=== PATIENT | male | born 1955 | race Caucasian/White ===

== ENCOUNTER 2017-03-30 11:09 | Inpatient (IN) | payer OTHER ==
[~2017-03-30] VITALS: Ht 175.3 cm; Wt 87.5 kg
[2017-03-30] VITALS (10 sets, daily range): BP systolic 120–183; BP diastolic 79–95; PULSE 52–71; RESP 16–24; TEMP 97.4–97.8; O2SAT 6–98
[~2017-03-30 11:09] MED LIST: ASPI81CH5; CLONIDINE PO
[2017-03-30] MEDS ORDERED: AMLO10TA2 PO (11:44)
[2017-03-30] MEDS ORDERED: ENAL10TA PO (11:44)
[2017-03-30] MEDS ORDERED: ATOR40TA16 PO (11:44)
[2017-03-30] MEDS ORDERED: SODIUM CHLORIDE 0.9% FLUSH 10 ML FLUSH IVF PRN (11:45)
[2017-03-30] MEDS ORDERED: ASPIRIN 325 MG TAB PO ONE (11:45)
[2017-03-30 11:59] LABS: AUTOMATED NEUTROPHIL # 5.3 TH/MM3 (1.8-7.7); BASOPHIL % 0.4 % (0.0-2.0); EOSINOPHIL # 0.2 TH/MM3 (0-0.4); EOSINOPHIL % 2.3 % (0.0-4.0); HEMATOCRIT 46.6 % (39.0-51.0); HEMO FLAGS DIFF FINAL; LYMPH % 26.2 % (9.0-44.0); LYMPHOCYTE # 2.2 TH/MM3 (1.0-4.8); MEAN CORPUSCULAR HEMOGLOBIN 30.9 PG (27.0-34.0); MEAN CORPUSCULAR HGB CONC 34.3 % (32.0-36.0); MONO % 7.8 % (0.0-8.0); NEUT % 63.3 % (16.0-70.0); PLATELET COUNT 142 TH/MM3 (150-450); RED BLOOD COUNT 5.18 MIL/MM3 (4.50-5.90); RED CELL DISTRIBUTION WIDTH 13.8 % (11.6-17.2); WHITE BLOOD COUNT 8.3 TH/MM3 (4.0-11.0)
[2017-03-30 12:07] LABS: APTT (PATIENT) 30.1 SEC (24.3-30.1); PROTHROMBIN TIME - PATIENT 10.8 SEC (9.8-11.6)
--- NOTE | 2017-03-30 12:11 | RADRPT ---
EXAM DATE/TIME: 03/30/2017 11:37 [place] COMPARISON: No previous studies available for comparison. INDICATIONS : Chest pain. MEDICAL HISTORY : None. SURGICAL HISTORY : Heart stent. ENCOUNTER: Initial ACUITY: 2 days PAIN SCORE: 4/10 LOCATION: Bilateral chest FINDINGS: A single view of the chest demonstrates the lungs to be symmetrically aerated without evidence of mas s, infiltrate or effusion. The cardiomediastinal contours are unremarkable. Osseous structures are intact. CONCLUSION: No acute disease. Carlos Manuel Beck MD on March 30, 2017 at 12:09 Board Certified Radiologist. This report was verified electronically.
--- NOTE | 2017-03-30 12:25 | PD ---
HPI Chief Complaint: Chest Pain Time Seen by Provider: 12:20 Travel History International Travel<30 days: No Contact w/Intl Traveler<30days: No Traveled to known affect area: No History of Present Illness HPI 61-year-old male that presents to the ED for evaluation of chest pain. Per patient he had chest pain on and off for the past couple days. Per patient he feels like a burning sensation as well as pressure. He does report that about 5 -10 years ago he had "a minor heart attack "per patient he does not know she had stents or anything that he was told that he had a heart event. He denies any chest pain at this time and states the chest pain actually has been gone for about an hour now. Patient was seen at a primary care facility where he was told to come here. He does have a history of high blood pressure high cholesterol. 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 He has not had a stress test in the past. Denies any shortness of breath. Denies any symptoms at this time. He was not given aspirin at the urgent care. He has no allergies to medication. Takes no blood thinners. Denies any abdominal pain. No nausea or vomiting. Per patient he had the pain was 5 out of 10. Radiate to the arms bilaterally but not always time. Per patient his been ongoing for about 2 days now. Today was the more severe and is what made him come here today. 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 PFSH Past Medical History Hx Anticoagulant Therapy: No Arthritis: No Asthma: No Autoimmune Disease: No Blood Disorders: No Anxiety: No Depression: No Heart Rhythm Problems: No Cancer: No Cardiac Catheterization: Yes (ANGIOPLASTY) Cardiovascular Problems: Yes High Cholesterol: No Chemotherapy: No Chest Pain: Yes Congestive Heart Failure: No COPD: No Cerebrovascular Accident: No Coronary Artery Disease: Yes Diabetes: No Diminished Hearing: No Endocrine: No GERD: No Glaucoma: No Genitourinary: No Headaches: No Hepatitis: No Hiatal Hernia: No Hypertension: Yes Kidney Stones: No Musculoskeletal: No Neurologic: No Psychiatric: No Respiratory: No Myocardial Infarction: No Radiation Therapy: No Renal Failure: No Seizures: No Sickle Cell Disease: No Sleep Apnea: No Thyroid Disease: No Ulcer: No Influenza Vaccination: No Past Surgical History Abdominal Surgery: Yes (APPENDECTOMY) AICD: No Body Medical Devices: NONE Cardiac Surgery: No Ear Surgery: No Endocrine Surgery: No Eye Surgery: No Genitourinary Surgery: No Gynecologic Surgery: No Oral Surgery: No Pacemaker: No Thoracic Surgery: No Other Surgery: Yes Social History Alcohol Use: Yes ("OCCASIONALLY" DRANK 3 VODKAS YESTERDAY.) Tobacco Use: Yes (1/2 TO 3/4 PPD) Substance Use: No Allergies-Medications (Allergen,Severity, Reaction): Coded Allergies: No Known Allergies (Verified , 03/30/17) Reported Meds & Prescriptions Reported Meds & Active Scripts Active Reported Enalapril (Enalapril Maleate) 10 Mg Tab 10 Mg PO BID Atorvastatin (Atorvastatin Calcium) 40 Mg Tab 40 Mg PO HS Amlodipine (Amlodipine Besylate) 10 Mg Tab 10 Mg PO DAILY Review of Systems Except as stated in HPI: all other systems reviewed are Neg Physical Exam Narrative GENERAL: SKIN: Warm and dry. HEAD: Atraumatic. Normocephalic. EYES: Pupils equal and round. No scleral icterus. No injection or drainage. ENT: No nasal bleeding or discharge. Mucous membranes pink and moist. Tongue is midline. No uvula deviation. NECK: Trachea midline. No JVD. CARDIOVASCULAR: Regular rate and rhythm. No murmurs, S3, S4. Chest pain is not reproducible with touch. RESPIRATORY: No accessory muscle use. Clear to auscultation. Breath sounds equal bilaterally. GASTROINTESTINAL: Abdomen soft, non-tender, nondistended. Hepatic and splenic margins not palpable. MUSCULOSKELETAL: Extremities without clubbing, cyanosis, or edema. No obvious deformities. Full range of motion of the upper and lower extremities bilaterally. 2+ pulses bilaterally. NEUROLOGICAL: Awake and alert. No obvious cranial nerve deficits. Motor grossly within normal limits. Five out of 5 muscle strength in the arms and legs. Normal speech. PSYCHIATRIC: Appropriate mood and affect; insight and judgment normal. Data Data Last Documented VS Vital Signs Date Time Temp Pulse Resp B/P Pulse Ox O2 Delivery O2 Flow Rate FiO2 03/30/17 11:30 71 24 175/87 97 Room Air 03/30/17 11:11 97.7 Orders Electrocardiogram (03/30/17 11:39) Basic Metabolic Panel (Bmp) (03/30/17 11:39) Ckmb (Isoenzyme) Profile (03/30/17 11:39) Complete Blood Count With Diff (03/30/17 11:39) Magnesium (Mg) (03/30/17 11:39) Prothrombin Time / Inr (Pt) (03/30/17 11:39) Act Partial Throm Time (Ptt) (03/30/17 11:39) Troponin I (03/30/17 11:39) Chest, Single Ap (03/30/17 11:39) Ecg Monitoring (03/30/17 11:39) Bilateral Bp Monitoring (03/30/17 11:39) Iv Access Insert/Monitor (03/30/17 11:39) Oximetry (03/30/17 11:39) Oxygen Administration (03/30/17 11:39) Aspirin (Aspirin) (03/30/17 11:45) Sodium Chloride 0.9% Flush (Ns Flush) (03/30/17 11:45) Admit Order (Ed Use Only) (03/30/17 13:09) Labs Laboratory Tests Test 03/30/17 11:48 White Blood Count 8.3 TH/MM3 Red Blood Count 5.18 MIL/MM3 Hemoglobin 16.0 GM/DL Hematocrit 46.6 % Mean Corpuscular Volume 90.0 FL Mean Corpuscular Hemoglobin 30.9 PG Mean Corpuscular Hemoglobin 34.3 % Concent Red Cell Distribution Width 13.8 % Platelet Count 142 TH/MM3 Mean Platelet Volume 10.5 FL Neutrophils (%) (Auto) 63.3 % Lymphocytes (%) (Auto) 26.2 % Monocytes (%) (Auto) 7.8 % Eosinophils (%) (Auto) 2.3 % Basophils (%) (Auto) 0.4 % Neutrophils # (Auto) 5.3 TH/MM3 Lymphocytes # (Auto) 2.2 TH/MM3 Monocytes # (Auto) 0.7 TH/MM3 Eosinophils # (Auto) 0.2 TH/MM3 Basophils # (Auto) 0.0 TH/MM3 CBC Comment DIFF FINAL Differential Comment Prothrombin Time 10.8 SEC Prothromb Time International 1.0 RATIO Ratio Activated Partial 30.1 SEC Thromboplast Time Sodium Level 136 MEQ/L Potassium Level 4.0 MEQ/L Chloride Level 106 MEQ/L Carbon Dioxide Level 25.5 MEQ/L Anion Gap 5 MEQ/L Blood Urea Nitrogen 13 MG/DL Creatinine 0.86 MG/DL Estimat Glomerular Filtration 90 ML/MIN Rate Random Glucose 204 MG/DL Calcium Level 9.2 MG/DL Magnesium Level 2.1 MG/DL Total Creatine Kinase 99 U/L Troponin I 0.23 NG/ML MDM Medical Decision Making Medical Screen Exam Complete: Yes Emergency Medical Condition: Yes Medical Record Reviewed: Yes Interpretation(s) CXR negative CBC & BMP Diagram 03/30/17 11:48 coags WNL EKG shows sinus rhythm with no sign of acute ischemic changes read by me and attending. Differential Diagnosis Chest pain versus a typical chest pain versus ACS versus normal exam Narrative Course 61-year-old male that presents to the ED for evaluation of chest pain. Patient was properly examined and was found to have signs and symptoms very consistent what appears to be chest pain. Definite concern for ACS. Possible angina. Patient has had symptoms for 2 days. Initial EKG initial any sign of ST elevation or depression. Read by me and attending. Labs and imaging were ordered. Patient was given aspirin. No nitroglycerin was given as he has no pain at this time. Labs and imaging showed elevated troponin of 0.23. Case discussed in my attending who recommends admission to medicine for a NSTEMI workup. This was discussed with Dr. Christopher who agrees to admission. Diagnosis Primary Impression: NSTEMI (non-ST elevated myocardial infarction) Admitting Information Admitting Physician Requests: Admit Steven Sullivan Mar 30, 2017 12:25
[2017-03-30 12:26] LABS: BICARBONATE 25.5 MEQ/L (21.0-32.0); MAGNESIUM 2.1 MG/DL (1.5-2.5)
[2017-03-30] MEDS ORDERED: HEPARIN-D5W INJ 250 ML IV SCH (13:15)
--- NOTE | 2017-03-30 16:14 | HHI.HP ---
HPI Service [facility] Hospitalists Primary Care Physician Kai Christian, Admission Diagnosis NSTEMI Travel History International Travel<30 Days: No Contact w/Intl Traveler <30 Da: No Traveled to Known Affected Are: No Past Family Social History Allergies: Coded Allergies: No Known Allergies (Verified , 03/30/17) Physical Exam Vital Signs Vital Signs Date Time Temp Pulse Resp B/P Pulse Ox O2 Delivery O2 Flow Rate FiO2 03/30/17 14:14 54 16 155/89 98 Room Air 03/30/17 11:30 71 24 175/87 97 Room Air 03/30/17 11:11 97.7 66 20 183/95 97 Room Air Physical Exam GENERAL: This is a well-nourished, well-developed patient, in no apparent distress. SKIN: No rashes, ecchymoses or lesions. Cool and dry. HEAD: Atraumatic. Normocephalic. No temporal or scalp tenderness. EYES: Pupils equal round and reactive. Extraocular motions intact. No scleral icterus. No injection or drainage. ENT: Nose without bleeding, purulent drainage or septal hematoma. Throat without erythema, tonsillar hypertrophy or exudate. Uvula midline. Airway patent. NECK: Trachea midline. No JVD or lymphadenopathy. Supple, nontender, no meningeal signs. CARDIOVASCULAR: Regular rate and rhythm without murmurs, gallops, or rubs. RESPIRATORY: Clear to auscultation. Breath sounds equal bilaterally. No wheezes , rales, or rhonchi. GASTROINTESTINAL: Abdomen soft, non-tender, nondistended. No hepato-splenomegaly , or palpable masses. No guarding. MUSCULOSKELETAL: Extremities without clubbing, cyanosis, or edema. No joint tenderness, effusion, or edema noted. No calf tenderness. Negative Homans sign bilaterally. NEUROLOGICAL: Awake and alert. Cranial nerves II through XII intact. Motor and sensory grossly within normal limits. Five out of 5 muscle strength in all muscle groups. Normal speech. Laboratory Laboratory Tests Test 03/30/17 11:48 White Blood Count 8.3 Red Blood Count 5.18 Hemoglobin 16.0 Hematocrit 46.6 Mean Corpuscular Volume 90.0 Mean Corpuscular Hemoglobin 30.9 Mean Corpuscular Hemoglobin 34.3 Concent Red Cell Distribution Width 13.8 Platelet Count 142 Mean Platelet Volume 10.5 Neutrophils (%) (Auto) 63.3 Lymphocytes (%) (Auto) 26.2 Monocytes (%) (Auto) 7.8 Eosinophils (%) (Auto) 2.3 Basophils (%) (Auto) 0.4 Neutrophils # (Auto) 5.3 Lymphocytes # (Auto) 2.2 Monocytes # (Auto) 0.7 Eosinophils # (Auto) 0.2 Basophils # (Auto) 0.0 CBC Comment DIFF FINAL Differential Comment Prothrombin Time 10.8 Prothromb Time International 1.0 Ratio Activated Partial 30.1 Thromboplast Time Sodium Level 136 Potassium Level 4.0 Chloride Level 106 Carbon Dioxide Level 25.5 Anion Gap 5 Blood Urea Nitrogen 13 Creatinine 0.86 Estimat Glomerular Filtration 90 Rate Random Glucose 204 Calcium Level 9.2 Magnesium Level 2.1 Total Creatine Kinase 99 Troponin I 0.23 Result Diagram: 03/30/17 1148 03/30/17 1148 Solomon De Santiago MD Mar 30, 2017 16:14
[2017-03-30] MEDS ORDERED: NITROGLYCERIN 0.4 MG SL 25 TABS/BTL SL PRN (16:15)
--- NOTE | 2017-03-30 16:15 | HHI.HP ---
HPI Service [facility] Hospitalists Primary Care Physician Kai Christian, DO Admission Diagnosis NSTEMI Chief Complaint: cp Travel History International Travel<30 Days: No Contact w/Intl Traveler <30 Da: No Traveled to Known Affected Are: No History of Present Illness Pt is 61 yo with cad and 2 stents in postlat cx in 2004 after presenting with AMI. He has done well since that time. Since last week the patient has noticed the same type of cp as he did in 2004 but notes it occurs many times after eating food. No diaphoresis or sob. In ED his troponin was elevated and heparin started. currently cp free. asa was given in ED but HR to slow for BB. Denies any nsaids or GIB. No hx gastritis or ulcers. No pleuritic component. Review of Systems Other cp/epigastric pain Past Family Social History Past Medical History cad. AMI. postlat cx stents x 2 2004 htn hyperlipidemia Reported Medications Reported Meds & Active Scripts Active Reported Enalapril (Enalapril Maleate) 10 Mg Tab 10 Mg PO BID Atorvastatin (Atorvastatin Calcium) 40 Mg Tab 40 Mg PO HS Amlodipine (Amlodipine Besylate) 10 Mg Tab 10 Mg PO DAILY Allergies: Coded Allergies: No Known Allergies (Verified , 03/30/17) Family History NC Social History 1ppd tob x 40yrs occ etoh Physical Exam Vital Signs heart reg lung cta abd s/nt ext no edema Vital Signs Date Time Temp Pulse Resp B/P Pulse Ox O2 Delivery O2 Flow Rate FiO2 03/30/17 14:14 54 16 155/89 98 Room Air 03/30/17 11:30 71 24 175/87 97 Room Air 03/30/17 11:11 97.7 66 20 183/95 97 Room Air Laboratory Laboratory Tests Test 03/30/17 11:48 White Blood Count 8.3 Red Blood Count 5.18 Hemoglobin 16.0 Hematocrit 46.6 Mean Corpuscular Volume 90.0 Mean Corpuscular Hemoglobin 30.9 Mean Corpuscular Hemoglobin 34.3 Concent Red Cell Distribution Width 13.8 Platelet Count 142 Mean Platelet Volume 10.5 Neutrophils (%) (Auto) 63.3 Lymphocytes (%) (Auto) 26.2 Monocytes (%) (Auto) 7.8 Eosinophils (%) (Auto) 2.3 Basophils (%) (Auto) 0.4 Neutrophils # (Auto) 5.3 Lymphocytes # (Auto) 2.2 Monocytes # (Auto) 0.7 Eosinophils # (Auto) 0.2 Basophils # (Auto) 0.0 CBC Comment DIFF FINAL Differential Comment Prothrombin Time 10.8 Prothromb Time International 1.0 Ratio Activated Partial 30.1 Thromboplast Time Sodium Level 136 Potassium Level 4.0 Chloride Level 106 Carbon Dioxide Level 25.5 Anion Gap 5 Blood Urea Nitrogen 13 Creatinine 0.86 Estimat Glomerular Filtration 90 Rate Random Glucose 204 Calcium Level 9.2 Magnesium Level 2.1 Total Creatine Kinase 99 Troponin I 0.23 Result Diagram: 03/30/17 1148 03/30/17 1148 Assessment and Plan Problem List: (1) NSTEMI (non-ST elevated myocardial infarction) Status: Acute Plan: Pt with hx cad, s/p AMI 2004 with 2 jose juan postlat cx Presents with atypical cp but similar to 2005 and even with sx's after eating. troponins trending up and concern for nstemi unable to give bb. ronda cont jacquie and statin heparin gtt started asa flp in AM echo ppi consult cardiology prn ntg. (2) HTN (hypertension) Status: Chronic Plan: home meds (3) Hyperlipidemia Status: Chronic (4) Tobacco abuse Status: Chronic Plan: counseled to stop Physician Certification 2 Midnight Certification Type: Admission for Inpatient Services Order for Inpatient Services 3The services are ordered in accordance with Medicare regulations or non- Medicare payer requirements, as applicable. In the case of services not specified as inpatient-only, they are appropriately provided as inpatient services in accordance with the 2-midnight benchmark. Estimated LOS (days): 3 3 days is the estimated time the patient will need to remain in the hospital, assuming treatment plan goals are met and no additional complications. Post-Hospital Plan: Home Solomon De Santiago MD Mar 30, 2017 16:15
[2017-03-30] MEDS: PANTOPRAZOLE SOD 40 MG DELAYED RELEASE TAB PO SCH (16:47)
[2017-03-30] MEDS ORDERED: cloNIDine HCL 0.1 MG TAB PO PRN (17:00)
[2017-03-30 18:31] LABS: CREATINE KINASE 121 U/L (39-308)
[2017-03-30 18:49] LABS: CKMB 5.2 NG/ML (0.5-3.6)
[2017-03-30 19:48] LABS: APTT (PATIENT) 44.6 SEC (24.3-30.1)
[2017-03-30] MEDS: ENALAPRIL MALEATE 10 MG TAB PO SCH (20:50)
[2017-03-30] MEDS: ATORVASTATIN 40 MG TAB PO SCH (20:50)
[2017-03-30] MEDS ORDERED: TEMAZEPAM 15 MG CAP PO PRN (21:00)
[2017-03-30 23:49] LABS: CREATINE KINASE 113 U/L (39-308)
[2017-03-31] VITALS (25 sets, daily range): BP systolic 132–148; BP diastolic 50–92; PULSE 48–72; RESP 16–18; TEMP 95–98; O2SAT 95–97
[2017-03-31 00:32] LABS: CKMB 4.8 NG/ML (0.5-3.6)
[2017-03-31 02:25] LABS: APTT (PATIENT) 42.1 SEC (24.3-30.1)
[2017-03-31 07:14] LABS: HDL CHOLESTEROL 43.9 MG/DL (40.0-60.0)
--- NOTE | 2017-03-31 08:52 | HHI.PR ---
Subjective Remarks no cp or sob. Objective Vitals heart reg lung cta abd s/nt ext no edema Vital Signs Date Time Temp Pulse Resp B/P Pulse Ox O2 Delivery O2 Flow Rate FiO2 03/31/17 08:29 59 03/31/17 07:35 97.6 59 18 148/89 96 03/31/17 07:35 59 03/31/17 06:00 53 03/31/17 05:00 56 03/31/17 04:00 60 03/31/17 03:00 95.0 56 18 132/50 96 03/31/17 03:00 59 03/31/17 02:00 54 03/31/17 01:00 58 03/31/17 00:00 50 03/30/17 23:00 97.8 58 18 120/79 66 03/30/17 23:00 60 03/30/17 22:00 55 03/30/17 21:00 60 03/30/17 20:00 52 03/30/17 19:00 57 03/30/17 19:00 97.5 64 18 146/81 97 03/30/17 18:11 97.4 59 18 162/92 96 03/30/17 18:11 59 03/30/17 16:15 55 16 162/95 97 Room Air 03/30/17 14:14 54 16 155/89 98 Room Air 03/30/17 11:30 71 24 175/87 97 Room Air 03/30/17 11:11 97.7 66 20 183/95 97 Room Air 03/30/17 03/30/17 03/31/17 15:00 23:00 07:00 Intake Total 508 ml Output Total 600 ml 550 ml Balance -600 ml -42 ml Intake Oral 350 ml IV Total 158 ml Output Urine Total 600 ml 550 ml # Voids 1 # Bowel Movements 0 Result Diagram: 03/30/17 1148 03/30/17 1148 A/P Problem List: (1) NSTEMI (non-ST elevated myocardial infarction) Status: Acute Plan: Pt with hx cad, s/p AMI 2004 with 2 jose juan postlat cx Presents with atypical cp but similar to 2005 and even with sx's after eating. troponins trending up and concern for nstemi unable to give bb. ronda cont ajcquie and statin heparin gtt started asa flp in AM echo ppi consult cardiology...will probably get LHC Saturday. prn ntg. (2) HTN (hypertension) Status: Chronic Plan: home meds (3) Hyperlipidemia Status: Chronic (4) Tobacco abuse Status: Chronic Plan: counseled to stop Solomon De Santiago MD Mar 31, 2017 08:52
[2017-03-31] MEDS: PANTOPRAZOLE SOD 40 MG DELAYED RELEASE TAB PO SCH (09:02)
[2017-03-31] MEDS: ENALAPRIL MALEATE 10 MG TAB PO SCH ×2 (09:02→20:32)
[2017-03-31] MEDS: ASPIRIN 325 MG TAB PO SCH (09:02)
--- NOTE | 2017-03-31 13:09 | EKG ---
Date Performed: 03/30/2017 Time Performed: 11:33:08 PTAGE: 61 years EKG: Sinus rhythm WITH MARKED SINUS ARRHYTHMIA WITH FIRST DEGREE AV BLOCK PROBABLE INFERIOR MYOCARDIAL INFARCTION Comp ared to prior tracing no significant change ABNORMAL ECG NO PREVIOUS TRACING DOCTOR: Fer Vega Interpretating Date/Time 03/31/2017 13:08:00
--- NOTE | 2017-03-31 13:10 | EKG ---
Date Performed: 03/30/2017 Time Performed: 17:33:23 PTAGE: 61 years EKG: SINUS BRADYCARDIA WITH FIRST DEGREE AV BLOCK WITH OCCASIONAL SUPRAVENTRICULAR PREMATURE COM PLEXES PROBABLE INFERIOR MYOCARDIAL INFARCTION Compared to previous tracing, atrial ectopy is noted a nd sinus rate is slightly slower ABNORMAL ECG PREVIOUS TRACING : 03/30/2017 11.33 DOCTOR: Fer Vega Interpretating Date/Time 03/31/2017 13:09:02
--- NOTE | 2017-03-31 16:19 | MB ---
cc: ZENAIDA LÓPEZ MD DATE OF CONSULTATION: 03/31/2017. REASON FOR CONSULTATION: NSTEMI. HISTORY OF PRESENT ILLNESS: The patient is a very pleasant 61-year-old gentleman with a history of coronary artery disease status post stenting back in 2004 to the proximal and midportion of the posterolateral circumflex artery. The patient was in his usual state of health and had not been following with any supervisor unloading in years when he began having chest discomfort several days ago intermittently. He presented to the emergency department and was admitted with a bump in his troponin, though he was chest pain-free since presenting to the hospital. He has no current chest pain, shortness breath, lightheadedness, or dizziness. PAST MEDICAL HISTORY: 1. Coronary artery disease as above. 2. Hypertension. 3. Hyperlipidemia. CURRENT MEDICATIONS: 1. Amlodipine 10 milligrams daily. 2. Aspirin 325 milligrams daily. 3. Atorvastatin 40 milligrams at bedtime. 4. Protonix 40 milligrams daily. 5. Heparin drip. ALLERGIES: NO KNOWN DRUG ALLERGIES. PHYSICAL EXAMINATION: VITAL SIGNS: Afebrile, pulse 53, respiratory rate 16, blood pressure 140/92, satting 97% on room air. GENERAL: A pleasant well-appearing gentleman in no distress. NECK: No jugular venous distention. LUNGS: Clear to auscultation bilaterally. CARDIOVASCULAR: Regular rate and rhythm. No murmurs appreciated. ABDOMEN: Benign. EXTREMITIES: No edema. EKGS: EKG shows sinus rhythm with PVCs and no acute S-T or T-wave changes. Possible old inferior infarct. LABORATORY DATA: White count 8.3, hematocrit 46.6, platelets 142,000. Sodium 136, potassium 4.0, chloride 106, bicarb 25.5, BUN 13, creatinine 0.86, glucose 204. His troponin initially was 0.23, peaked at 1.09 and now is 0.7. LDL is 53. IMAGING STUDIES: Chest x-ray shows no acute disease. IMPRESSION: NSTEMI: The patient presents with chest pain and elevated cardiac enzymes consistent with NSTEMI. His says his chest pain is very similar to that which he had in 2005 prior to his stenting. He is currently pain-free. He is on aspirin, heparin drip and a statin. I am holding a beta christine due to his bradycardia. Will plan for heart catheterization tomorrow with one of my associates. He will be kept n.p.o. past midnight and further recommendations will be based on his heart catheterization. Thank you again for the opportunity to participate in this patient's care. MD CHIRAG Casillas/RENE /2:42 PM /4:18 PM
--- NOTE | 2017-03-31 19:01 | ECHRPT ---
Indication: Chest pain, unspecified CONCLUSIONS Normal left ventricular size. Mild concentric left ventricular hypertrophy. The left ventricular systolic function is normal with an estimated ejection fraction in the range of 55-60%. Mild mitral valve regurgitation. Aortic valve sclerosis is present. There is a trivial pericardial effusion BP: / HR: Rhythm: Sinus MEASUREMENTS (Male / Female) Normal Values Technical Quality:Good 2D ECHO LV Diastolic Diameter PLAX 5.4 cm 4.2 - 5.9 / 3.9 - 5.3 cm LV Systolic Diameter PLAX 4.0 cm IVS Diastolic Thickness 1.3 cm 0.6 - 1.0 / 0.6 - 0.9 cm LVPW Diastolic Thickness 0.8 cm 0.6 - 1.0 / 0.6 - 0.9 cm LV Relative Wall Thickness 0.4 RV Internal Dim ED PLAX 2.1 cm LA Systolic Diameter LX 3.7 cm 3.0 - 4.0 / 2.7 - 3.8 cm M-MODE Aortic Root Diameter MM 4.1 cm AV Cusp Separation MM 2.4 cm DOPPLER AV Peak Velocity 137.0 cm/s AV Peak Gradient 7.5 mmHg LVOT Peak Velocity 103.0 cm/s LVOT Peak Gradient 4.2 mmHg Mitral E Point Velocity 60.7 cm/s Mitral A Point Velocity 88.4 cm/s Mitral E to A Ratio 0.7 LV E' Lateral Velocity 7.3 cm/s Mitral E to LV E' Lateral Ratio 8.3 LV E' Septal Velocity 6.0 cm/s Mitral E to LV E' Septal Ratio 10.0 TR Peak Velocity 151.0 cm/s TR Peak Gradient 9.1 mmHg FINDINGS LEFT VENTRICLE Normal left ventricular size. Mild concentric left ventricular hypertrophy. The left ventricular systolic function is normal with an estimated ejection fraction in the range of 55-60%. RIGHT VENTRICLE Normal right ventricular size and systolic function. LEFT ATRIUM The left atrial size is normal. RIGHT ATRIUM The right atrial size is normal. ATRIAL SEPTUM Normal atrial septal thickness without atrial level shunting by limited color doppler interrogation. AORTA The aortic root and proximal ascending aorta are normal in size on limited imaging. MITRAL VALVE Mild mitral valve regurgitation. AORTIC VALVE Aortic valve sclerosis is present. TRICUSPID VALVE Structurally normal tricuspid valve. No tricuspid valve stenosis or regurgitation. PULMONARY VALVE The pulmonary valve is not well visualized. VESSELS The inferior vena cava is normal in size. PERICARDIUM There is a trivial pericardial effusion Fer Vega MD (Electronically Signed) Final Date:31 March 2017 19:01
[2017-03-31] MEDS: ATORVASTATIN 40 MG TAB PO SCH (20:32)
[2017-04-01] VITALS (25 sets, daily range): BP systolic 129–163; BP diastolic 82–91; PULSE 50–71; RESP 16–20; TEMP 97.3–98.9; O2SAT 94–98
[2017-04-01 07:08] LABS: APTT (PATIENT) 47.9 SEC (24.3-30.1)
--- NOTE | 2017-04-01 09:22 | HHI.PR ---
Subjective Remarks Pt denies CP, palpitation, or SOB. Objective Vitals Vital Signs Date Time Temp Pulse Resp B/P Pulse Ox O2 Delivery O2 Flow Rate FiO2 04/01/17 08:00 60 04/01/17 07:20 60 20 137/88 94 04/01/17 07:00 54 04/01/17 06:00 59 04/01/17 05:00 55 04/01/17 04:05 51 04/01/17 03:45 97.4 61 16 129/82 96 04/01/17 03:00 54 04/01/17 02:00 52 04/01/17 01:00 56 04/01/17 00:00 54 03/31/17 23:30 98.0 58 16 140/87 96 03/31/17 23:00 58 03/31/17 22:00 64 03/31/17 21:00 54 03/31/17 20:00 97.5 60 16 140/79 96 03/31/17 20:00 62 03/31/17 19:00 59 03/31/17 18:01 72 03/31/17 17:01 62 03/31/17 16:06 60 03/31/17 15:16 97.6 63 16 138/88 95 03/31/17 15:16 48 03/31/17 14:01 53 03/31/17 13:17 66 03/31/17 12:11 62 03/31/17 11:01 97.9 65 16 140/92 97 03/31/17 11:01 56 03/31/17 10:04 55 03/31/17 09:21 53 03/31/17 03/31/17 04/01/17 15:00 23:00 07:00 Intake Total 820 ml 360 ml Output Total 425 ml Balance 820 ml -65 ml Intake Oral 720 ml 240 ml IV Total 100 ml 120 ml Output Urine Total 425 ml # Voids 4 1 # Bowel Movements 0 0 Result Diagram: 03/30/17 1148 03/30/17 1148 Imaging Last Impressions Chest X-Ray 03/30/17 1139 Signed Impressions: Service Date/Time: Thursday, March 30, 2017 11:37 - CONCLUSION: No acute disease. Carlos Manuel Beck MD Objective Remarks GENERAL: This is a well-nourished, well-developed patient, in no apparent distress. CARDIOVASCULAR: Regular rate and rhythm without murmurs, gallops, or rubs. RESPIRATORY: Clear to auscultation. Breath sounds equal bilaterally. No wheezes , rales, or rhonchi. GASTROINTESTINAL: Abdomen soft, non-tender, nondistended. Normal active bowel sounds MUSCULOSKELETAL: Extremities without clubbing, cyanosis, or edema. NEURO: Alert & Oriented x4 to person, place, time, situation. Moves all ext x4 A/P Problem List: (1) NSTEMI (non-ST elevated myocardial infarction) Status: Acute Plan: - Pt with hx cad, s/p AMI 2004 with 2 jose juan postlat cx - Present presented with atypical cp but similar to 2005 and even with sx's after eating. troponins trending up and concern for nstemi - Pt had elevated troponins which peaked at 1.09 - ASA, lipitor, vasotec - heparin - prn NTG - LDL 59 (04/01/17) - Echo pending - Pt to undergo LHC later today with Dr. Forrester - trending bradycardic on telemetry. Will d/w Dr. Forrester. (2) HTN (hypertension) Status: Chronic Plan: - stable - norvasc, vasotec (3) Hyperlipidemia Status: Chronic Plan: - lipitor (4) Tobacco abuse Status: Chronic Plan: counseled to stop Problem Qualifiers (1) HTN (hypertension): Qualified Code: I10 - Essential hypertension (2) Hyperlipidemia: Qualified Code: E78.5 - Hyperlipidemia, unspecified hyperlipidemia type Kelby Ferrell DO Apr 01, 2017 09:22
[2017-04-01] MEDS: ASPIRIN 325 MG TAB PO SCH (09:50)
[2017-04-01] MEDS: PANTOPRAZOLE SOD 40 MG DELAYED RELEASE TAB PO SCH (09:50)
[2017-04-01] MEDS: ENALAPRIL MALEATE 10 MG TAB PO SCH ×2 (09:50→20:09)
[2017-04-01] MEDS ORDERED: IOHEXOL 350 MG/ML 100 ML BTL (for Cath Lab) OTHER ONE (09:59)
[2017-04-01] MEDS ORDERED: HEPARIN-NS/PF INJ 500 ML ONE (10:08)
[2017-04-01] MEDS ORDERED: MIDAZOLAM HCL 2 MG/2 ML VIAL ONE ×2 (10:08→11:09)
--- NOTE | 2017-04-01 10:23 | MB ---
cc: EDELMIRA LE DATE OF CONSULTATION: 04/01/2017 DATE OF : 1955 REASON FOR CONSULTATION [id number] [place]. HISTORY OF PRESENT ILLNESS 61-year-old male with a past medical history of coronary artery disease status post PCI in 2004, hypertension, hyperlipidemia, that presented to the hospital with mid substernal chest discomfort for the last several days. He was admitted to the [facility] and he ruled in [place] by cardiac markers, EKG with nonspecific ST changes. He was started on a heparin drip, aspirin and statin, and consulted to cardiology who has been following the patient. Interventional cardiology has been consulted for left heart cath consideration. REVIEW OF SYSTEMS Negative except for what is mentioned in the HPI. PAST MEDICAL HISTORY 1. CAD, status post PCI in 2004. 2. Hypertension. 3. Hyperlipidemia. 4. Smoker. MEDICATIONS Home medications: 1. Amlodipine 10 mg p.o. daily. 2. Atorvastatin 40 mg p.o. daily. 3. Enalapril 10 mg p.o. daily. ALLERGIES No known drug allergies. FAMILY HISTORY Noncontributory. SOCIAL HISTORY He is an active smoker. PHYSICAL EXAMINATION VITAL SIGNS: Temperature 97.4, respiratory rate 20, pulse 68, blood pressure 137/88. O2 sat 94% on room air. GENERAL: He is awake, alert and oriented x3, in no acute distress. NECK: No JVD. No carotid bruits. HEART: Regular rate and rhythm. No murmurs, rubs or gallops. LUNGS: Clear to auscultation bilaterally. No wheezes, rhonchi or rales. ABDOMEN: Soft, nontender, nondistended. Positive bowel sounds. EXTREMITIES: No cyanosis or edema. Pulses throughout. DATA Hemoglobin 16, hematocrit 46, platelet count 142. INR is 1. Sodium 136, potassium 4.0, BUN 13, creatinine 0.86. Troponin 0.2, 0.9, 1.0 and 1.7. Triglycerides 193, cholesterol 141, LDL 59, HDL 43. Chest x-ray: No acute cardiopulmonary process. Echocardiogram: Normal LV systolic function with estimated ejection fraction of 60%. EKG: Sinus rhythm with PVCs, nonspecific ST changes. ASSESSMENT AND PLAN 61-year-old male with known coronary artery disease and PCI in the past who presents with NSTEMI. Echocardiogram shows preserved LV systolic function. He is currently chest pain free, tolerating aspirin, heparin drip and statin. Beta blockers have been on hold because of bradycardia. At this time given his patient history and presentation I think it is reasonable to do a left heart catheterization and possible PCI to assess progression of coronary artery disease. The risks and benefits of left heart cath/PCI include but are not limited to bleeding, infection, neurovascular trauma, emergent bypass surgery, acute kidney injury, stroke and have been explained to the patient. The patient understands the risks and he is willing to proceed. Keep n.p.o. for a left heart cath today. Edelmira Le MD RESEARCH GROUP DIRECTOR/BT /10:01 AM /10:18 AM MTDAndrew
[2017-04-01] MEDS ORDERED: HEPARIN SODIUM - IV 10,000 UNITS/10 ML VIAL ONE (10:37)
[2017-04-01] MEDS ORDERED: NITROGLYCERIN INJ 5 ML ONE (10:38)
[2017-04-01] MEDS ORDERED: NITROGLYCERIN 400 MCG/SPRAY 4.9 GM BOTTLE SL ONE (11:05)
[2017-04-01] MEDS ORDERED: CLOPIDOGREL 300 MG TAB ONE ×2 (11:25→11:29)
[2017-04-01] MEDS ORDERED: SODIUM CHLOR 0.9% 1000 ML INJ 1,000 ML IV SCH (11:40)
[2017-04-01] MEDS ORDERED: ACETAMINOPHEN 325 MG TAB PO PRN (11:45)
--- NOTE | 2017-04-01 11:46 | CATHPROC ---
[employer] HIS Report Study Information Study Number Admission Scheduled Start Study Start [id number] Mar 30 2017 1:11PM 04/01/2017 Apr 01 2017 9:45AM [facility] Cardiac Catheterization Admit Source Facility Department Emergency department [facility] - Digital Manager Physician and Clinical Staff Initial Rosalino Wallis Boiler/Chiller Operator Lynsey Patterson,DERICK Boiler/Chiller OperatorValerie Zimmerman,Moy Martinez,DERICK Recorder Isamar Benz,SOLID WASTE DISPOSAL MANAGER TECH2 Scrub Davon Gillespie RCIS(BS) Procedures Performed Procedure Location (Site) Vessel Name Coronary Angiograms LCA Left Coronary Coronary Angiograms RCA Right Coronary Drug Eluting Inflatio RCA Dist Right Coronary LV Gram-hand inj. LV LV Ventricle PTCA RCA Right Coronary PTCA CIRC Mid CIRC PTCA RCA Dist Right Coronary Wire insertion Fem Art (right) Femoral Art Equipment Time Shaker Operator Description Size Mfg Part Number Used/Scraped PERCLOSE, PRO GLIDE CLOSER 11:22 [employer] FR 6 [id number] *[id number] Used DEVICE TRANSDUCER, TRUWAVE [id number] 10:25 SHAHID NEIL * Used W/STOCKCOCK *[id number]- INTRODUCER SET, 10:25 [employer]. FR 5 [id number] Used MICROPUNCTURE, STIFFENED *[id number] *[id number] *[id number] *[id number] *[id number] 10:25 Red LaGoon INDUSTRIES PACK, CCL CUSTOM * Used *[id number] 11:06 MEDTRONIC BALLOON, 1.5 X 6MM EUPHORA 6MM Used *[id number] 10:45 MEDTRONIC BALLOON, 2.0 X 10MM EUPHORA 10MM Used *[id number] BALLOON, 2.5 X 12MM NC [id number] 11:19 MEDTRONIC 12MM Used EUPHORA *[id number] BALLOON, 3.0 X 12MM NC [id number] 10:58 MEDTRONIC 12MM Used EUPHORA *[id number] STENT, 2.5 22 RESOLUTE [id number] 10:51 MEDTRONIC 2.5 22 Used INTEGRITY RX *[id number] STENT, 2.75 26 RESOLUTE [id number] 10:55 MEDTRONIC 2.75 26 Used INTEGRITY RX *[id number] 10:45 [employer]Coder MEDICAL 30 OSWALDO INDEFLATOR Used *[id number] 10:25 Opternative WIRE, 3MMJ .035 180CM 180CM Used *[id number] 10:25 NAMIC MANIFOLD, 4 PORT * Used *[id number] 10:25 NYCOMED OMNIPAQUE, 350 MG, 150ML 150ML [id number] Used [id number] 10:25 [facility] BLANKET,WARM AIR CCL * Used *[id number] 10:25 TERUMO MEDICAL SHEATH, FR5 TERUMO (10CM) FR 5 [id number] Used 10:38 TERUMO MEDICAL SHEATH, FR6 TERUMO (10CM) FR 6 [id number] Used 10:39 TERUMO MEDICAL SHEATH, FR6 TERUMO (10CM) FR 6 [id number] Used WIRE, RUNTHROUGH NS FLOPPY [id number] 10:40 TERUMO MEDICAL 180CM Used .014 180CM *[id number] WIRE, RUNTHROUGH NS FLOPPY [id number] 10:44 TERUMO MEDICAL 180CM Used .014 180CM *[id number] Equipment Model, Serial, Lot Number and Expiration Data Description Model Number Serial Number Lot Number Expiration Date BALLOON, 2.5 X 12MM MI [id number] 01-23-2019 EUPHORA STENT, 2.5 22 RESOLUTE [id number] 02-13-2018 INTEGRITY RX STENT, 2.75 26 RESOLUTE [id number] 10-24-2017 INTEGRITY RX History: Current Medications Medication Dosage/Unit Route Frequency Last Date/Time Taken NORVASC Statins (any) VASOTEC History: Allergies Allergy Reaction No Known Allergies History: Risk Factors Family History of Hypertension Dyslipidemia Previous ID Previous Heart Failure Premature CAD Yes Yes No No No Prior Valve Prior PCI Prior PCIDate Prior CABG Surgery No Yes 04/19/2005 No Cerebrovascular Peripheral Artery Chronic Lung On Dialysis Diabetes Disease Disease Disease No No No No No History: Symptoms/Diagnosis Selection Items Chest pain History: CV Disease Selection Items Known CAD History: Stress Tests Stress or Imaging Studies Performed No History: Other Disease Selection Items CAD HTN History: ID/CV Data Previous Cath Date 04/19/2005 History: Other Current Smoker Method Packs a Day Years Used Pack Years Yes Cigarettes 1 40 40 Labs Hgb (g/dl) Hct (%) WBC (l/cumm) Platelets (thousands) 11.60-17.00 35.00-51.00 4.00-11.00 150.00-450.00 16.0 46.6 8.3 142 Glucose (mg/dl) BUN (mg/dl) Creatinine (mg/dl) BUN:Creatinine (1:x) 74.00-106.00 7.00-18.00 0.50-1.30 10.00-20.00 90 13 0.8 16.3 Na (meq/l) K (meq/l) 136.00-145.00 3.50-5.10 136 4 Medication Medication Total Dose (Bolus/Oral) Medication Total Dosage/Unit 1% XYLOCAINE 20 mL FENTANYL 50 mcg HEPARIN 8000 units NITROGLYCERIN S/L 0.4 mg VERSED 3 mg Medications (Bolus/Oral) Medication Time Given Dosage/Unit Administered By Reason VERSED 04/01/2017 10:23:04 AM 2 mg Valerie Gayle 2 mg VERSED given in lab by Valerie Gayle, DERICK in Left Antecubital via Peripheral IV. Ordered by Rosalino Meek. 1% XYLOCAINE 04/01/2017 10:23:19 AM 20 mL Rosalino Arenas 20 mL 1% XYLOCAINE given in lab by Rosalino Arenas in Right Groin via Subcutaneous. Ordered by Rosalino Waddell. FENTANYL 04/01/2017 10:24:20 AM 50 mcg Valerie Gayle 50 mcg FENTANYL given in lab by Valerie Gayle RN in Left Antecubital via Peripheral IV. Ordered by Rosalino Arenas. HEPARIN 04/01/2017 10:39:20 AM 5000 units Valerie Gayle 5000 units HEPARIN given in lab by Valerie Gayle RN in Left Antecubital via Peripheral IV. Ordered by Rosalino Arenas. NITROGLYCERIN S/L 04/01/2017 11:05:37 AM 0.4 mg Valerie Gayle 0.4 mg NITROGLYCERIN S/L given in lab by Valerie Gayle, DERICK via Sublingual. Ordered by Abril Arenas. VERSED 04/01/2017 11:10:33 AM 1 mg Moy Pena 1 mg VERSED given in lab by Moy Pena, DERICK in Left Antecubital via Peripheral IV. Ordered by Rosalino Waddell. HEPARIN 04/01/2017 11:20:18 AM 3000 units Moy Pena 3000 units HEPARIN given in lab by Moy Pena, DERICK via Peripheral IV. Ordered by Rosalino Arenas . Medication (Drip) Medication Time Given Dosage/Unit Concentration/Unit Diluent (ml) Solution IV Solutions 04/01/2017 10:06:39 AM 0 mL (IV) 500 NaCl .9 IV Solutions given in lab by Lynsey Patterson RN in Left Antecubital via Peripheral IV. Pump/Drip Matt w = 20 ml/hr using NaCl .9. Ordered by Rosalino Waddell. Initial Case Assessment Cardiovascular HR NIBP 58 154/90 Circulatory - Right Pulses Dorsalis Pedis Femoral 3 3 Scale (0,1,2,3,4,d) Circulatory - Left Pulses Dorsalis Pedis Femoral 3 3 Scale (0,1,2,3,4,d) Neurological State Oriented to time-place- Alert Moves all extremities person Respiration - General Respiration Rate SpO2 (%) (B/min) 12 95 Final Case Assessment Cardiovascular HR NIBP 50 137/80 Circulatory - Right Pulses Dorsalis Pedis Femoral 3 3 Scale (0,1,2,3,4,d) Circulatory - Left Pulses Dorsalis Pedis Femoral 3 3 Scale (0,1,2,3,4,d) Neurological State Oriented to time-place- Alert Moves all extremities person Respiration - General Respiration Rate SpO2 (%) (B/min) 18 94 Chronological Log Time Study Chronological Log 9:59:36 Patient arrived via Bed. 9:59:37 Patient Name, D.O.B, / Armband Verified By R.N. 10:01:52 Consent signed by the physician and the patient and verified by the Digital Manager staff. 10:01:54 Patient has been NPO for More than 6Hrs. 10:01:55 Skin Breakdown- 10:01:57 Patient Warmer Placed on the Table. 10:02:00 A # 20 IV was noted in the Antecubital (right). Grade = 0 10:02:01 IV Warmer Connected To Patient. 10:02:03 A # 20 IV was noted in the Hand (left). Grade = 0 Vitals capture started with the following parameters, Patient=Adult, Interval=5 min, Initial Pr aiezaf=520 mmHg, 10:06:36 Deflation Rate=5 mmHg IV Solutions given in lab by Lynsey Patterson, RN in Left Antecubital via Peripheral IV. Pump/Dr ip Flow = 20 ml/hr using 10:06:39 NaCl .9. Ordered by Rosalino Arenas. 10:07:48 HR=58 bpm, CZDR=877/90 mmhg, SpO2=95.0 %, Resp=12 B/min, Pain=0, Rik=10, Craig=2 10:09:05 History and physical on the chart or being dictated. Assessment: Initial Case, HR=58 BPM, XLCC=962/90 mmhg Right Pulses: Ariel Ped=3, Femoral=3 10:09:06 Left Pulses: Ariel Ped=3, Femoral=3 Neurological: State=Alert, Ox3, HEART Respiration: Resp=12 B/min, SpO2=95 % 10:09:49 Reference ECG taken 10:12:14 HR=56 bpm, EVLS=940/88 mmhg, SpO2=96.0 %, Resp=18 B/min, Pain=0, Rik=10, Craig=2 10:15:29 Bilateral groins prepped with 2% chlorhexidine, and with a 3 min. waiting time. 10:16:17 Pressure channel 1 zeroed. 10:17:15 HR=57 bpm, HLQF=480/90 mmhg, SpO2=96.0 %, Resp=12 B/min, Pain=0, Rik=10, Craig=2 10:22:14 HR=57 bpm, RQOU=060/89 mmhg, SpO2=96.0 %, Resp=8 B/min Time Out. Correct patient, correct procedure,correct physician,power injector not loaded with c ontrast with surgical 10::39 team present. Time Out Concurred by , individual staff in procedure 10:23:04 2 mg VERSED given in lab by Valerie Gayle, DERICK in Left Antecubital via Peripheral IV. Orde red by Forrester-Kwaku, Rosalino. 10:23:18 Case Start 20 mL 1% XYLOCAINE given in lab by Dagoberto, Rosalino in Right Groin via Subcutaneous. Ordered b y Dagoberto, 10:23:19 Rosalino. 50 mcg FENTANYL given in lab by Valerie Gayle, RN in Left Antecubital via Peripheral IV. Orde red by Dagoberto, 10:24:20 Rosalino. 10:24:40 Access site was Right Femoral Artery. A INTRODUCER SET, MICROPUNCTURE, STIFFENED FR 5 was advanced into the Fem Art (right) using the Modified 10:24:48 Seldinger technique. A SHEATH, FR5 TERUMO (10CM) FR 5 was exchanged in the Fem Art (right). This was necessary in or robin to achieve 10:25:12 vascular hemostasis. 10:25:29 An injection in the Fem Art (right) was made through the SHEATH, FR5 TERUMO (10CM) FR 5. A JR 4.0 INFINITI CATHETER FR 5 was advanced over a wire. OMNIPAQUE, 350 MG, 150ML 150ML was us ed for 10:26:08 injections. 10:27:13 HR=77 bpm, ZNGD=463/85 mmhg, SpO2=94.0 %, Resp=15 B/min, Pain=0, Rik=10, Craig=2 Recorded Pressure: LV, HR=61, Condition=Condition 1 10:28:20 (Left Ventricle) LV 151/6/18 10:28:43 The LV was manually injected with 10 cc's and visualized. OMNIPAQUE, 350 MG, 150ML 150ML us ed. Recorded Pressure: LV, Ao, HR=62, Condition=Condition 1 10:28:53 (Left Ventricle) LV 140/7/13, (Aorta) Ao 144/82/107 Recorded Pressure: Ao, HR=60, Condition=Condition 1 10:29:32 (Aorta) Ao 144/81/107 10:29:37 The RCA was injected and visualized at various angles. OMNIPAQUE, 350 MG, 150ML 150ML used . 10:30:24 Catheter was removed A JL 4.0 INFINITI CATHETER FR 5 was advanced over a wire. OMNIPAQUE, 350 MG, 150ML 150ML was us ed for 10:30:35 injections. 10:32:04 Catheter was removed 10:32:14 HR=59 bpm, GYCE=540/81 mmhg, SpO2=94.0 %, Resp=12 B/min, Pain=0, Rik=10, Craig=2 A JL 5.0 INFINITI CATHETER FR 5 was advanced over a wire. OMNIPAQUE, 350 MG, 150ML 150ML was us ed for 10:32:41 injections. 10:33:55 The LCA was injected and visualized at various angles. OMNIPAQUE, 350 MG, 150ML 150ML used . 10:35:30 Catheter was removed 10:37:13 HR=58 bpm, NNRN=202/82 mmhg, SpO2=93.0 %, Resp=11 B/min, Pain=0, Rik=10, Craig=2 A SHEATH, FR6 TERUMO (10CM) FR 6 was exchanged in the Fem Art (right). This was necessary in or robin for catheter 10:37:19 support. A JR 4.0 GUIDE CATHETER FR 6 was advanced over a wire. OMNIPAQUE, 350 MG, 150ML 150ML was used for 10:38:31 injections. 5000 units HEPARIN given in lab by Valerie Gayle, RN in Left Antecubital via Peripheral IV. O rdered by Dagoberto, 10:39:20 Rosalino. 10:39:46 A WIRE, RUNTHROUGH NS FLOPPY .014 180CM 180CM was inserted via Fem Art (right). 10:41:16 Interventional wire has crossed the lesion 10:42:16 HR=60 bpm, IKTR=301/87 mmhg, SpO2=94.0 %, Resp=15 B/min, Pain=0, Rik=10, Craig=2 10:43:49 A WIRE, RUNTHROUGH NS FLOPPY .014 180CM 180CM was inserted via Fem Art (right). A BALLOON, 2.0 X 10MM EUPHORA 10MM was inserted over WIRE, RUNTHROUGH NS FLOPPY .014 180CM 180C M via 10:46:21 the RCA Dist. 10:47:13 HR=57 bpm, CCPW=385/90 mmhg, SpO2=94.0 %, Resp=13 B/min, Pain=0, Rik=10, Craig=2 A BALLOON, 2.0 X 10MM EUPHORA 10MM over a WIRE, RUNTHROUGH NS FLOPPY .014 180CM 180CM in the RC A Dist 10:48:55 was inflated using a 30 OSWALDO INDEFLATOR at 10 oswaldo for 20 sec. A BALLOON, 2.0 X 10MM EUPHORA 10MM over a WIRE, RUNTHROUGH NS FLOPPY .014 180CM 180CM in the RC A Dist 10:49:26 was inflated using a 30 OSWALDO INDEFLATOR at 10 oswaldo for 15 sec. 10:50:53 Balloon Removed. A STENT, 2.5 22 RESOLUTE INTEGRITY RX 2.5 22 was advanced through a JR 4.0 GUIDE CATHETER FR 6 over a WIRE, 10:51:09 RUNTHROUGH NS FLOPPY .014 180CM 180CM. 10:52:16 HR=60 bpm, RHHG=375/93 mmhg, SpO2=97.0 %, Resp=15 B/min, Pain=0, Rik=10, Craig=2 A STENT, 2.5 22 RESOLUTE INTEGRITY RX 2.5 22 was deployed using a 30 OSWALDO INDEFLATOR at 12 atmos pheres for ::52 20 seconds in the RCA Dist. 10:54:09 Delivery device removed A STENT, 2.75 26 RESOLUTE INTEGRITY RX 2.75 26 was advanced through a JR 4.0 GUIDE CATHETER FR 6 over a 10:54:17 WIRE, RUNTHROUGH NS FLOPPY .014 180CM 180CM. A STENT, 2.75 26 RESOLUTE INTEGRITY RX 2.75 26 was deployed using a 30 OSWALDO INDEFLATOR at 14 oswaldo ospheres 10:55:58 for 25 seconds in the RCA Dist. 10:56:22 Re-inflated the stent balloon in the RCA Dist to 14 OSWALDO for 10 seconds. 10:57:09 Delivery device removed 10:57:19 HR=52 bpm, NHMX=285/93 mmhg, SpO2=96.0 %, Resp=10 B/min, Pain=0, Rik=10, Craig=2 A BALLOON, 3.0 X 12MM NC EUPHORA 12MM was inserted over WIRE, RUNTHROUGH NS FLOPPY .014 180CM 1 80CM 10:58:07 via the RCA Dist. A BALLOON, 3.0 X 12MM NC EUPHORA 12MM over a WIRE, RUNTHROUGH NS FLOPPY .014 180CM 180CM in the RCA 10:58:52 Dist was inflated using a 30 OSWALDO INDEFLATOR at 10 oswaldo for 15 sec. A BALLOON, 3.0 X 12MM NC EUPHORA 12MM over a WIRE, RUNTHROUGH NS FLOPPY .014 180CM 180CM in the RCA 10:59:08 Dist was inflated using a 30 OSWALDO INDEFLATOR at 12 oswaldo for 20 sec. A BALLOON, 3.0 X 12MM NC EUPHORA 12MM over a WIRE, RUNTHROUGH NS FLOPPY .014 180CM 180CM in the RCA 10:59:35 was inflated using a 30 OSWALDO INDEFLATOR at 12 oswaldo for 12 sec. A BALLOON, 3.0 X 12MM NC EUPHORA 12MM over a WIRE, RUNTHROUGH NS FLOPPY .014 180CM 180CM in the RCA 10:59:52 Dist was inflated using a 30 OSWALDO INDEFLATOR at 12 oswaldo for 12 sec. 11:01:32 Balloon Removed. 11:02:20 HR=56 bpm, BXEV=127/95 mmhg, SpO2=96.0 %, Resp=18 B/min, Pain=0, Rik=10, Craig=2 A BALLOON, 2.0 X 10MM EUPHORA 10MM was inserted over WIRE, RUNTHROUGH NS FLOPPY .014 180CM 180C M via 11:04:40 the RCA Dist. 11:05:08 Balloon Removed. 11:05:37 0.4 mg NITROGLYCERIN S/L given in lab by Valerie Gayle, DERICK via Sublingual. Ordered by Rosalino Meek. A BALLOON, 1.5 X 6MM EUPHORA 6MM was inserted over WIRE, RUNTHROUGH NS FLOPPY .014 180CM 180CM via 11:06:02 the RCA Dist. 11:07:24 HR=55 bpm, IHES=897/93 mmhg, SpO2=96.0 %, Resp=9 B/min, Pain=0, Rik=10, Craig=2 11:08:57 Balloon Removed. A BALLOON, 3.0 X 12MM NC EUPHORA 12MM was inserted over WIRE, RUNTHROUGH NS FLOPPY .014 180CM 1 80CM 11:08:59 via the RCA Dist. A BALLOON, 1.5 X 6MM EUPHORA 6MM over a WIRE, RUNTHROUGH NS FLOPPY .014 180CM 180CM in the RCA Dist 11:10:11 was inflated using a 30 OSWALDO INDEFLATOR at 14 oswaldo for 20 sec. 11::33 1 mg VERSED given in lab by Moy Pena, RN in Left Antecubital via Peripheral IV. Order ed by Rosalino Arenas. 11::53 Balloon Removed. 11:11:00 Wire removed ::33 Wire removed ::37 Catheter was removed 11:: Activated Clotting Time Drawn 11::25 HR=65 bpm, PVBF=493/92 mmhg, SpO2=94.0 %, Resp=15 B/min, Pain=0, Rik=10, Craig=2 A XB 4.0 GUIDE CATHETER FR 6 was advanced over a wire. OMNIPAQUE, 350 MG, 150ML 150ML was used for ::54 injections. 11:17:05 ACT (Normal Range 90-180) = 241 11:17:20 HR=57 bpm, CJHI=967/83 mmhg, SpO2=95.0 %, Resp=18 B/min, Pain=0, Rik=10, Craig=2 11:17:26 A WIRE, RUNTHROUGH NS FLOPPY .014 180CM 180CM was inserted via Fem Art (right). 11:17:45 Interventional wire has crossed the lesion A BALLOON, 2.5 X 12MM NC EUPHORA 12MM was inserted over WIRE, RUNTHROUGH NS FLOPPY .014 180CM 1 80CM 11:19:19 via the CIRC Mid. A BALLOON, 2.5 X 12MM NC EUPHORA 12MM over a WIRE, RUNTHROUGH NS FLOPPY .014 180CM 180CM in the CIRC 11:19:24 Mid was inflated using a 30 OSWALDO INDEFLATOR at 20 oswaldo for 25 sec. A BALLOON, 2.5 X 12MM NC EUPHORA 12MM over a WIRE, RUNTHROUGH NS FLOPPY .014 180CM 180CM in the CIRC 11:20:10 Mid was inflated using a 30 OSWALDO INDEFLATOR at 20 oswaldo for 15 sec. 11:20:18 3000 units HEPARIN given in lab by Moy Pena, RN via Peripheral IV. Ordered by Rosalino Siddiqui. A BALLOON, 2.5 X 12MM NC EUPHORA 12MM over a WIRE, RUNTHROUGH NS FLOPPY .014 180CM 180CM in the CIRC 11:20:42 Mid was inflated using a 30 OSWALDO INDEFLATOR at 10 oswaldo for 10 sec. 11:21:11 Balloon Removed. 11:21:23 Catheter was removed 11:21:33 Case End PCI QA completed: Pre-Bradley - 2, Post Bradley - 3, Type - C, Length - 30 mm, Morphology - Concentri c, Indications - Lesion 11:21:34 > 50 non-stem, Pre-Stenosis - 99% and Post Stenosis - 0%. PCI QA completed: Pre-Bradley - 2, Post Bradley - 3, Type - C, Length - 30 mm, Morphology - Concentri c, Indications - Lesion 11:21:35 > 50 non-stem, Pre-Stenosis - 99% and Post Stenosis - 0%. PCI QA completed: Pre-Bradley - 3, Post Bradley - 3, Type - C, Length - 10 mm, Morphology - Atypical , Indications - Lesion > 11:21:36 50 non-stem, Pre-Stenosis - 70% and Post Stenosis - 0%. BALLOON ONLY 11:21:37 PCI QA obtained from Nurse'S Aides Teacher 11:21:38 PCI QA obtained from Nurse'S Aides Teacher 11:22:19 HR=60 bpm, LLBD=887/86 mmhg, SpO2=93.0 %, Resp=4 B/min, Pain=0, Rik=10, Craig=2 11:22:48 PERCLOSE, PRO GLIDE CLOSER DEVICE FR 6 placement in the Fem Art (right) 11:26:46 Sterile dressing applied to site 11:26:47 No case complications noted. 11:26:51 Cine recording checked. 11:27:18 HR=50 bpm, XUZD=264/80 mmhg, SpO2=94.0 %, Resp=18 B/min, Pain=0, Rik=10, Craig=2 Assessment: Final Case, HR=50 BPM, OOYH=833/80 mmhg Right Pulses: Ariel Ped=3, Femoral=3 11:32:55 Left Pulses: Ariel Ped=3, Femoral=3 Neurological: State=Alert, Ox3, HEART Respiration: Resp=18 B/min, SpO2=94 % 11:33:35 Patient moved to stretcher End Study - Contrast Media Used In Study Contrast Total Opened (mL) Total Used (mL) Total Wasted (mL) Omnipaque 175 175 0 End Study - Maximum Contrast Load Max Contrast Load (mL) 553.1 End Study - Radiation Exposure Fluoro Time (minutes) 18.6 End Study - Patient Disposition Complications Transferred To Interventional Outcome No Telemetry Bed successful
--- NOTE | 2017-04-01 12:03 | MA ---
cc: EDELMIRA LE DATE: 04/01/2017 DATE OF : 1955 PROCEDURE PERFORMED 1. Left heart catheterization. 2. Selective right and left coronary angiography. 3. Left ventriculogram. 4. Selective right common femoral artery angiography. 5. PCI to distal right coronary artery/PDA. 6. POBA to left circumflex stent. INDICATION Sku-PX-lmggesanc CT. APPROACH Right transfemoral. PROCEDURE DESCRIPTION Consent signed. 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 The right groin was prepped and draped in sterile fashion. Using 1% lidocaine for local anesthesia and a micropuncture kit a 6-Azerbaijani sheath was inserted into the right common femoral artery. Right common femoral artery angiography was performed to confirm position of the sheath then selective right and left coronary angiography was performed with a JR4 and a JL5 diagnostic catheter. Angiography was taken in multiple views. The JR4 diagnostic catheter was introduced over a wire to the ventricle. This was followed by pressure recordings, left ventriculogram and pullback. We identified a lesion in the distal right coronary artery right before the location of the PLV and the PDA which had a 99% blockage. This was the culprit of the nlj-UH-bzqlxwlsa CT. Also there was in-stent restenosis of the left circumflex stent. Both lesions were amenable to PCI. Heparin was given for IV anticoagulation then a JR4 6-Azerbaijani guide was used to engage the right coronary artery. The lesion was wired with a Runthrough wire. Two wires were used. The second wire was used for protection in the PLV branch. We then predilated the lesion with a 2.0 balloon, then direct stent of the lesion with a 2.5 x 22 drug-eluting stent, and 2.75 x 26 drug-eluting stent. The stents were postdilated with a noncompliant 3.0 x 12 to high atmospheres. Final angiographic views revealed good stent apposition and expansion with BASSEM-III flow. The posterolateral branch was protected with another wire behaved appropriately. There was no plaque shifting. Nothing was in this branch. For the left circumflex artery the left main was engaged with an EBU 4 guide. The vessel was wired with a Runthrough wire which was anchored distally in an OM and then the lesion was dilated with a noncompliant 2.5 x 12 to high atmospheres. Final angiographic views revealed good expansion and no residual stenosis. The patient tolerated the procedure well without complications. Estimated blood loss was less than 50 cc. Total contrast used was 170 cc. The right groin access site was closed with a Perclose device. The patient was loaded with 600 of Plavix after the procedure. RESULTS LEFT VENTRICLE The left ventricular pressure was 140/7with an LVEDP of 13. The aortic pressure was 144/81 with a mean of 107. The was no gradient upon pullback from the left ventricle to the aorta. The left ventriculogram revealed a symmetrically margaret ventricle with an estimated ejection fraction of 60%. ANGIOGRAPHY 1. The right coronary artery is a dominant vessel giving off the PDA. This vessel has a long lesion distally that starts with an 80% lesion then it tapers down to a 99% lesion right before the bifurcation of the PLV branch and the PDA. The vessel has BASSEM-II flow throughout. This segment of the vessel is the culprit of the elevation of troponins. 2. The left main is patent with BASSEM-III flow. 3. The LAD is a transapical vessel. It has minimal luminal irregularities, however, no significant obstructive coronary artery disease. Distally in the LAD there is a 10% lesion and a 20% lesion. The vessel is giving off two diagonals which are patent with BASSEM-III flow and nonobstructive coronary artery disease. 4. The left circumflex artery has a stent in its midsegment. The stent has around 70% lesion inside the stent. The rest of the vessel looks patent with nonobstructive coronary artery disease. 5. There is a ramus vessel. This vessel is tortuous and patent with BASSEM-III flow and no significant obstructions. CONCLUSIONS 1. Successful PCI to distal RCA/PDA in the setting of a tqi-UX-ubruvllgt CT. 2. Successful POBA (plain old balloon angioplasty) of the left circumflex stent in the setting of in-stent restenosis. RECOMMENDATIONS The patient will be admitted to [facility] for post-cath care. He will continue aspirin and Plavix as well as JAVIER inhibitor and statin. Beta blockers have been on hold given patient's bradycardia. After bed rest will encourage ambulation out of bed. He should follow with a retail store associate upon discharge and smoking cessation is strongly advised. MD CATHY Farr/GORDON /11:40 AM /11:49 AM
[2017-04-01] MEDS ORDERED: MISC INFORMATION XX ONE (13:00)
[2017-04-01] MEDS ORDERED: CLOPIDOGREL 300 MG TAB PO ONE (13:00)
[2017-04-01] MEDS: ATORVASTATIN 40 MG TAB PO SCH (20:10)
[2017-04-02] VITALS (18 sets, daily range): BP systolic 146–155; BP diastolic 88–89; PULSE 54–100; RESP 18–20; TEMP 97.4–98.4; O2SAT 95–96
[2017-04-02 07:00] LABS: APTT (PATIENT) 30.4 SEC (24.3-30.1)
[2017-04-02] MEDS: PANTOPRAZOLE SOD 40 MG DELAYED RELEASE TAB PO SCH (08:39)
[2017-04-02] MEDS: ENALAPRIL MALEATE 10 MG TAB PO SCH (08:39)
[2017-04-02] MEDS ORDERED: CLOPIDOGREL 75 MG TAB PO SCH (09:00)
[2017-04-02] MEDS ORDERED: ASPIRIN 81 MG CHEW TAB PO SCH (09:00)
--- NOTE | 2017-04-02 14:42 | PD.CARD.PN ---
Subjective Subjective Remarks no complaints no overnight events Objective Medications Current Medications Medications (Trade) Dose Ordered Sig/Shira Route Start Time Stop Time Status Last Admin (NS Flush) 2 ml UNSCH PRN IVF 03/30/17 11:45 (Norvasc) 10 mg DAILY PO 03/31/17 09:00 04/02/17 08:39 (Lipitor) 40 mg HS PO 03/30/17 21:00 04/01/17 20:10 (Vasotec) 10 mg BID PO 03/30/17 21:00 04/02/17 08:39 (Nitrostat Sl) 0.4 mg Q5M PRN SL 03/30/17 16:15 (Protonix) 40 mg DAILY PO 03/30/17 16:15 04/02/17 08:39 (Restoril) 15 mg HS PRN PO 03/30/17 21:00 (Catapres) 0.1 mg Q4H PRN PO 03/30/17 17:00 (Tylenol) 325 mg Q4H PRN PO 04/01/17 11:45 (Aspirin Chew) 81 mg DAILY PO 04/02/17 09:00 04/02/17 08:39 (Plavix) 75 mg DAILY PO 04/02/17 09:00 04/02/17 08:39 Vital Signs / I&O Vital Signs Date Time Temp Pulse Resp B/P Pulse Ox O2 Delivery O2 Flow Rate FiO2 04/02/17 13:00 70 04/02/17 12:00 96 04/02/17 11:15 97.4 62 20 150/88 96 04/02/17 11:00 100 04/02/17 10:00 60 04/02/17 09:00 58 04/02/17 08:00 60 04/02/17 07:23 98.4 60 18 155/89 96 04/02/17 07:00 56 04/02/17 07:00 57 04/02/17 06:00 60 04/02/17 05:00 58 04/02/17 04:00 54 04/02/17 04:00 97.8 64 18 146/89 95 04/02/17 03:00 56 04/02/17 02:00 56 04/02/17 01:00 58 04/02/17 00:00 63 04/01/17 23:00 97.8 71 18 158/91 95 04/01/17 23:00 61 04/01/17 22:00 64 04/01/17 21:00 60 04/01/17 20:00 61 04/01/17 20:00 97.8 64 18 163/85 95 04/01/17 19:00 66 04/01/17 18:00 50 04/01/17 17:00 53 04/01/17 16:00 54 04/01/17 15:00 97.6 55 20 139/88 98 04/01/17 15:00 54 I/O 04/01/17 04/01/17 04/01/17 04/02/17 04/02/17 04/02/17 06:59 14:59 22:59 06:59 14:59 22:59 Intake Total 360 ml 900 ml 240 ml Output Total 425 ml 500 ml Balance -65 ml 400 ml 240 ml Intake Oral 240 ml 300 ml 240 ml IV Total 120 ml 600 ml Output Urine Total 425 ml 500 ml # Voids 1 1 # Bowel Movements 0 Physical Exam GENERAL: Well-nourished, well-developed patient. SKIN: Warm and dry. HEAD: Normocephalic. EYES: No scleral icterus. No injection or drainage. NECK: Supple, trachea midline. No JVD or lymphadenopathy. CARDIOVASCULAR: Regular rate and rhythm without murmurs, gallops, or rubs. RESPIRATORY: Breath sounds equal bilaterally. No accessory muscle use. GASTROINTESTINAL: Abdomen soft, non-tender, nondistended. EXTREMITIES: No cyanosis, or edema. NEUROLOGICAL: Awake, alert, and oriented x 3. Non-focal. Laboratory Laboratory Tests Test 04/02/17 05:50 Activated Partial 30.4 SEC Thromboplast Time Imaging Last Impressions Chest X-Ray 03/30/17 1139 Signed Impressions: Service Date/Time: Thursday, March 30, 2017 11:37 - CONCLUSION: No acute disease. Carlos Manuel Beck MD Assessment and Plan Problem List: (1) NSTEMI (non-ST elevated myocardial infarction) Assessment and Plan: s/p PCI to RCA-PDA s/p POBA to LCx Recommendations: 1. Cont DAPT with ASA and Plavix 2. Cont ACEi, statin and Norvasc 3. No BB given bradycardia 4. Encourage ambulation 5. Follow up with Cardiology in 1 week 6. Smoking cessation 7. Stable to be d/c home from CV standpoint (2) Hyperlipidemia (3) Tobacco abuse (4) HTN (hypertension) Problem Qualifiers (1) Hyperlipidemia: Qualified Code: E78.5 - Hyperlipidemia, unspecified hyperlipidemia type (2) HTN (hypertension): Qualified Code: I10 - Essential hypertension Rosalino Arenas MD Apr 02, 2017 14:42
--- NOTE | 2017-04-02 14:45 | HHI.DS ---
Discharge Summary Admission Date Mar 30, 2017 at 13:11 Discharge Date: Apr 02, 2017 Admitting Diagnosis NSTEMI (1) NSTEMI (non-ST elevated myocardial infarction) Diagnosis: Principal (2) HTN (hypertension) Diagnosis: Secondary (3) Hyperlipidemia Diagnosis: Secondary (4) Tobacco abuse Diagnosis: Secondary Consultants Dr. Rosalino Forrester, Cardiology Brief History Pt is 61 yo with cad and 2 stents in postlat cx in 2004 after presenting with AMI. He has done well since that time. Since last week the patient has noticed the same type of cp as he did in 2005 but notes it occurs many times after eating food. No diaphoresis or sob. In ED his troponin was elevated and heparin started. currently cp free. asa was given in ED but HR to slow for BB. Denies any nsaids or GIB. No hx gastritis or ulcers. No pleuritic component. CBC/BMP: 03/30/17 1148 03/30/17 1148 Significant Findings Laboratory Tests Test 03/30/17 03/30/17 03/30/17 03/31/17 17:35 19:26 23:18 01:43 Creatine Kinase MB 5.2 NG/ML 4.8 NG/ML (0.5-3.6) (0.5-3.6) Troponin I 0.92 NG/ML 1.09 NG/ML (0.02-0.05) (0.02-0.05) Activated Partial 44.6 SEC 42.1 SEC Thromboplast Time (24.3-30.1) (24.3-30.1) Test 03/31/17 04/01/17 04/02/17 06:28 05:58 05:50 Troponin I 0.70 NG/ML (0.02-0.05) Triglycerides Level 193 MG/DL (42-150) Activated Partial 47.9 SEC 30.4 SEC Thromboplast Time (24.3-30.1) (24.3-30.1) PE at Discharge GENERAL: This is a well-nourished, well-developed patient, in no apparent distress. CARDIOVASCULAR: Regular rate and rhythm without murmurs, gallops, or rubs. RESPIRATORY: Clear to auscultation. Breath sounds equal bilaterally. No wheezes , rales, or rhonchi. GASTROINTESTINAL: Abdomen soft, non-tender, nondistended. Normal active bowel sounds MUSCULOSKELETAL: Extremities without clubbing, cyanosis, or edema. NEURO: Alert & Oriented x4 to person, place, time, situation. Moves all ext x4 Hospital Course (1) NSTEMI (non-ST elevated myocardial infarction) Status: Acute Plan: - Pt with hx cad, s/p AMI 2004 with 2 jose juan postlat cx - Present presented with atypical cp but similar to 2005 and even with sx's after eating. troponins trending up and concern for nstemi - Pt had elevated troponins which peaked at 1.09 - ASA, lipitor, vasotec - heparin - prn NTG - LDL 59 (04/01/17) - Echo (03/31/17) --> 55-60% - Pt underwent LHC with Dr. Forrester (04/01/17) - 2 JOSE JUAN to distal RCA - POBA to previous stent in Left circumflex artery - continue on ASA & plavix - metoprolol stopped d/t bradycardia - discharge to home today, 04/02/17 - Pt to f/u with Dr. Forrester in 1 week - Pt to f/u with PCP, Dr. Kai Christian, in 1 week - see discharge orders (2) HTN (hypertension) Status: Chronic Plan: - stable - norvasc, vasotec (3) Hyperlipidemia Status: Chronic Plan: - lipitor (4) Tobacco abuse Status: Chronic Plan: counseled to stop Pt Condition on Discharge: Stable Discharge Disposition: Discharge Home Discharge Instructions DIET: Follow Instructions for: Heart Healthy Diet Activities you can perform: Regular-No Restrictions Follow up Referrals: Cardiology - [address] Rosalino Forrester PCP Follow-up - 1 Week with Kai Christian New Medications: Aspirin (Aspirin Low Strength) 81 Mg Chew 81 MG PO DAILY CORONARY STENT #30 Ref 0 EA Clopidogrel (Plavix) 75 Mg Tab 75 MG PO DAILY coronary stent #30 Ref 0 TAB Nitroglycerin SL (Nitrostat SL) 0.4 Mg Subl 0.4 MG SL Q5M q5min x 3 prn chest pain PRN ANGINA #7 Ref 0 MG Continued Medications: Amlodipine (Amlodipine) 10 Mg Tab 10 MG PO DAILY Blood Pressure Management #30 Ref 0 TAB Atorvastatin (Atorvastatin) 40 Mg Tab 40 MG PO HS Cholesterol Management #30 Ref 0 TAB Enalapril (Enalapril) 10 Mg Tab 10 MG PO BID #60 Ref 0 TAB Kelby Ferrell DO Apr 02, 2017 14:45
[2017-04-02] MEDS ORDERED: NITR0.4S SL (15:16)
[2017-04-02] MEDS ORDERED: ASPI81CH25 PO (15:16)
[2017-04-02] MEDS ORDERED: PLAV75TA29 PO (15:16)
== END 2017-04-02 15:53 | disposition home or self-care (01) | DRG 247 ==
LOC: NEPE 11:09 → NEDA 13:11 → HCIS 17:42
PROVIDERS: ADMIT Hospitalist; ATTEND Hospitalist
PROC: 4A023N7 Measurement of Cardiac Sampling and Pressure, Left Heart, Percutaneous Approach (ICD-10-PCS; 2017-04-01)
PROC: B2111ZZ Fluoroscopy of Multiple Coronary Arteries using Low Osmolar Contrast (ICD-10-PCS; 2017-04-01)
PROC: B2151ZZ Fluoroscopy of Left Heart using Low Osmolar Contrast (ICD-10-PCS; 2017-04-01)
PROC: B41F1ZZ Fluoroscopy of Right Lower Extremity Arteries using Low Osmolar Contrast (ICD-10-PCS; 2017-04-01)
PROC: 027135Z Dilation of Coronary Artery, Two Arteries with Two Drug-eluting Intraluminal Devices, Percutaneous Approach (ICD-10-PCS; principal; 2017-04-01 10:00)
DX: I21.4 Non-ST elevation (NSTEMI) myocardial infarction (principal); T82.855A Stenosis of coronary artery stent, initial encounter; I10 Essential (primary) hypertension; I25.119 Atherosclerotic heart disease of native coronary artery with unspecified angina pectoris; E78.00 Pure hypercholesterolemia, unspecified; F17.200 Nicotine dependence, unspecified, uncomplicated; E78.5 Hyperlipidemia, unspecified; R00.1 Bradycardia, unspecified; Y83.1 Surgical operation with implant of artificial internal device as the cause of abnormal reaction of the patient, or of later complication, without mention of misadventure at the time of the procedure
CPT/HCPCS: 71010; 80048; 80061; 82550; 82552; 83735; 84484; 85002; 85025; 85610; 85730; 92920; 92928; 93005; 93306; 93458; C1725; C1760; C1769; C1874; C1887; C1893; G0269; J1644; J2250; J3010; J7030; Q9967